=== PATIENT | female | born 1985 | race Caucasian/White ===

== ENCOUNTER 2022-07-22 17:18 | Emergency (ER) | payer OTHER ==
[2022-07-22 17:49] LABS: HEMOGLOBIN 12.1 gm/dl (12.3-15.3); RED BLOOD COUNT 3.96 M/UL (4.00-5.10); WHITE BLOOD COUNT 9.6 K/UL (4.5-11.0)
[2022-07-22 18:08] LABS: BUN/CREATININE RATIO 15 (0-10)
== END 2022-07-22 21:35 | disposition left against medical advice (07) ==
LOC: ER1 17:18
PROVIDERS: Nurse Practitioner
DX: N63.20 Unspecified lump in the left breast, unspecified quadrant (principal)
CPT/HCPCS: 80053; 80076; 81001; 83605; 83690; 85025; 87077; 87086; 87186; 99283